=== PATIENT | male | born 1950 | race Caucasian/White ===

== ENCOUNTER → 2016-07-08 | Outpatient (CLI) | payer OTHER, MEDICARE ==
--- NOTE | 2016-07-08 15:33 | DX ---
Chest, Two Views - July 08, 2016, at 1144 hours History: Cough. Comparison: February 2014. Findings: Cardiac silhouette is within normal range. No pneumonia, congestive heart failure, pleura l effusion, or pneumothorax. Right inferolateral pleural thickening similar to the previous study wit h blunting of the right costophrenic angle again noted. Bilateral peribronchial thickening. Impression: 1. Mild bronchitis. 2. No definite pneumonia. 3. Right inferolateral pleural thickening similar to the previous study.
== END ==
LOC: CIMAGING 11:21
PROVIDERS: ATTEND Internal Medicine
DX: J40 Bronchitis, not specified as acute or chronic (principal)
CPT/HCPCS: 71020-PO

== ENCOUNTER 2018-04-16 07:59 | Emergency (ER) | payer OTHER, MEDICARE ==
--- NOTE | 2018-04-16 08:33 | EDPHY ---
H & P Stated Complaint: constipation, last bowel movement on thursday, took mag citrate this am Time Seen by Provider: 04/16/18 08:03 HPI/ROS: This patient presents with constipation. His last bowel movement was 5 days ago. He explains that he had a colonoscopy without complications 6 days ago and 1 small bowel movement thereafter but since then has been unable to have a bowel movement. He feels that there is stool in the rectal vault but is unable to"push passed beyond the wall". He had 1 similar episode in the past that resolved with Mag citrate so he tried some Mag citrate this morning and developed some abdominal cramping that was moderate prior to arrival. The cramping has since subsided but he still unable to have a bowel movement. ROS: Constitutional: No fevers HEENT: No URI symptoms or other complaints new line pulmonary: No dyspnea Cardiovascular: No lightheadedness or chest pain GI: No abdominal distension. No nausea or vomiting. Maintains normal appetite : No complaints Neuro: No complaints 10 point review of symptoms is performed and otherwise negative with exception of pertinent positives and negatives listed in HPI and ROS Source: Patient Exam Limitations: No limitations - Medical/Surgical History Hx Asthma: No Hx Chronic Respiratory Disease: No Hx Diabetes: No Hx Cardiac Disease: No Hx Renal Disease: No Hx Cirrhosis: No Hx Alcoholism: No Hx HIV/AIDS: No Hx Splenectomy or Spleen Trauma: No Other PMH: hernia repair, partial colectomy (to tx a fistula), prostate ca - 2009 - Social History Smoking Status: Never smoked Alcohol Use: Occasionally Drug Use: None - Physical Exam Exam: General Appearance: Alert, no distress. Eyes: Pupils equal and round no pallor or injection. ENT, Mouth: Mucous membranes moist. Respiratory: There are no retractions, lungs are clear to auscultation. Cardiovascular: Regular rate and rhythm. Gastrointestinal: Abdomen is soft and nontender, no masses, bowel sounds normal. Rectal exam: No external hemorrhoids. He has some firm stool in the rectal vault that is brown and heme-negative on Hemoccult testing : No evidence of inguinal hernia. No testicular swelling or tenderness. Neurological: GCS 15 Skin: Warm and dry, no rashes. Musculoskeletal: Neck is supple nontender. Extremities are symmetrical, full range of motion. Psychiatric: Mood and affect are normal DIFFERENTIAL DIAGNOSIS: After history and physical exam differential diagnosis was considered for constipation, obstipation, doubt early bowel obstruction or electrolyte abnormality. Constitutional: Initial Vital Signs Temperature (C) 36.5 C 04/16/18 08:07 Heart Rate 80 04/16/18 08:07 Respiratory Rate 18 04/16/18 08:07 Blood Pressure 182/121 H 04/16/18 08:07 O2 Sat (%) 99 04/16/18 08:07 O2 Delivery Mode Room Air Allergies/Adverse Reactions: No Known Allergies Allergy (Verified 04/16/18 08:05) Home Medications: Medication Instructions Recorded amLODIPine BESYLATE [Norvasc 5 mg 5 mg PO DAILY 03/06/15 (*)] traZODone [traZODONE 50MG (*)] 50 mg PO HS 03/06/15 Docusate Sodium [Colace 100 MG (*)] 100 mg PO BID #20 cap 04/16/18 Medical Decision Making ED Course/Re-evaluation: soapsuds enema with small bowel movement Based on initial exam I felt the patient might require manual disimpaction however he was very anxious about the initial exam with high sphincter tone given this factor he gave him a dose of Versed as mild anxiolytic while on O2 sat monitor and attempted disimpaction but the stools high the rectal vault I was unable to remove the remaining firm stool. Clinically the patient does not have obstruction. Will send him home with plan for a bowel regimen for constipation. He understands need to return should he develop worsening symptoms despite treatment plan - Data Points Medications Given: Discontinued Medications Sodium Chloride (Ns) 1,000 mls @ 0 mls/hr IV ONCE ONE; Wide Open PRN Reason: Protocol Stop: 04/16/18 09:39 Last Admin: 04/16/18 09:50 Dose: 1,000 mls Midazolam HCl (Versed) 2 mg IVP EDNOW ONE Stop: 04/16/18 09:18 Last Admin: 04/16/18 09:18 Dose: 2 mg Point of Care Test Results: Chemistry 04/16/18 09:13 POC Sodium 143 mEq/L mEq/L (135-145) POC Potassium 3.5 mEq/L mEq/L (3.3-5.0) POC Chloride 103.0 mEq/L mEq/L (97-110) POC Total CO2 26 mEq/L mEq/L (22-31) POC BUN 13 mg/dL mg/dL (7-23) POC Creatinine 1.4 mg/dL H mg/dL (0.7-1.3) POC Glucose 105 mg/dL H mg/dL (70-100) POC Calcium 9.6 mg/dL mg/dL (8.5-10.4) Occult Blood Occult Blood Collection Date 04/16/18 Occult Blood Collection Time 08:35 Occult Blood Result Negative/Negative Departure - Departure Disposition: Home, Routine, Self-Care Clinical Impression: Constipation Condition: Good Instructions: Constipation (ED), High Fiber Diet (ED) Additional Instructions: Diagnosis: Constipation Plan: Colace stool softener-2 day Metamucil 20 g a day Milk a magnesia-30 mL a day [place] oil 1-2 tbsp a day Enemas as needed Consider 1/2 dose of Mag citrate at a time in addition as needed. Above plan until the having 1 more bowel movements today. If you start having loose stools then dropped 1 of these therapies that time starting from the bottom going up for the top the list. Call your primary care physician to arrange follow-up appointment for further evaluation Return for any significant worsening despite the treatment plan Referrals: NONE *PRIMARY CARE P,. [Primary Care Provider] - As per Instructions Nandini Mars DO [Doctor of Osteopathy] - As per Instructions Prescriptions: Docusate Sodium [Colace 100 MG (*)] 100 mg PO BID #20 cap
[2018-04-16] MEDS ORDERED: MIDAZOLAM 2 MG/2 ML VIAL ONE (09:15)
[2018-04-16] MEDS: MIDAZOLAM 2 MG/2 ML VIAL IVP ONE (09:18)
[2018-04-16] MEDS: NS 1,000 ML IV ONE (09:50)
[2018-04-16 17:00] VITALS: BP 156/91
== END 2018-04-16 10:32 | disposition home or self-care (01) ==
LOC: CED 07:59
DX: K59.00 Constipation, unspecified (principal)
CPT/HCPCS: 96361; 96374; 99284; J2250; 80048-PO

== ENCOUNTER 2018-10-03 14:53 | Observation (INO) | payer OTHER, MEDICARE ==
--- NOTE | 2018-10-03 15:03 | EDPHY ---
HPI/HX/ROS/PE/MDM Narrative: CHIEF COMPLAINT: Pain, erythema, bleeding s/p hernia repair 11 days ago HPI: This patient is a 68 year old male with history of prostate cancer. He is s/p ventral hernia repair surgery with Dr. Bourne, general surgeon, on 09/22/18, 11 days ago. He arrives today with his complaining of and pain and redness around his surgical site as well as bleeding from the area. Armando, he and his noted some mild redness around his dressings. Yesterday, he developed pain around the surgical site which "felt like bee stings". Today, he noted increased erythema and bleeding coming from under the dressing. He denies fever , nausea, vomiting, or diarrhea. He has not yet followed up with his surgeon since the procedure. REVIEW OF SYSTEMS: A comprehensive 10 system review of systems is otherwise negative aside from elements mentioned in the history of present illness and medical decision making. PMH: Hernia repair, partial colectomy for fistula repair, history of prostate cancer in 2009 SOCIAL HISTORY: Nonsmoker. . Employed. PHYSICAL EXAM: General:Patient is alert, in no acute distress. ENT:Eyes are normal to inspection. ENT inspection normal. Neck: Normal inspection. Full range of motion. Respiratory:No respiratory distress. Breath sounds normal bilaterally. Cardiovascular: Regular rate and rhythm. Strong peripheral pulses. Normal cap refill. Abdomen: Healing surgical incision with 6 inches of surrounding erythema. Serosanguineous discharge from umbilicus. Steri strips over incision are intact. The abdomen is nontender to palpation. There are no peritoneal signs. There are normal bowel sounds. Back: Normal to inspection. No tenderness to palpation. Skin: See abdomen. Normal color. No rash. Warm and dry. Extremities: Normal appearance. Full range of motion. Neuro: Oriented x3. Normal motor function. Normal sensory function. ED Course: 68 y/o male who is day 11 s/p hernia repair presents with about 6in of erythema surrounding his surgical site and serosanguineous discharge from the umbilicus. Plan for labs including CBC, chemistries, co-ag panel. Plan to consult with Dr. Bourne or the general surgeon community association manager for his practice. 15:30 Reviewed laboratory studies. WBC elevated at 15,000. Chemistries pending. 16:00 Laboratory studies otherwise largely unremarkable. Plan to consult with general surgery as above. 16:15 Dr. Vogel, general surgeon, at bedside. 16:33 Dr. Vogel, has evaluated the patient. He has a large abscess under his surgical site. Dr. Vogel plans to I&D this here in the emergency department. Plan to admit patient following this. Dr. Vogel accepts admission. - Data Points Laboratory Results: Laboratory Results 10/03/18 15:15 10/03/18 15:15 10/03/18 10/03/18 10/03/18 15:15 15:15 15:15 WBC 15.53 10^3/uL H 10^3/uL (3.80-9.50) RBC 5.10 10^6/uL 10^6/uL (4.40-6.38) Hgb 15.9 g/dL g/dL (13.7-17.5) Hct 44.8 % % (40.0-51.0) MCV 87.8 fL fL (81.5-99.8) MCH 31.2 pg pg (27.9-34.1) MCHC 35.5 g/dL g/dL (32.4-36.7) RDW 11.1 % L % (11.5-15.2) Plt Count 239 10^3/uL 10^3/uL (150-400) MPV 8.4 fL L fL (8.7-11.7) Neut % (Auto) 77.7 % H % (39.3-74.2) Lymph % (Auto) 12.2 % L % (15.0-45.0) [place] % (Auto) 8.3 % % (4.5-13.0) Eos % (Auto) 0.8 % % (0.6-7.6) Baso % (Auto) 0.2 % L % (0.3-1.7) Nucleat RBC Rel Count 0.0 % % (0.0-0.2) Absolute Neuts (auto) 12.06 10^3/uL H 10^3/uL (1.70-6.50) Absolute Lymphs (auto) 1.89 10^3/uL 10^3/uL (1.00-3.00) Absolute Monos (auto) 1.29 10^3/uL H 10^3/uL (0.30-0.80) Absolute Eos (auto) 0.13 10^3/uL 10^3/uL (0.03-0.40) Absolute Basos (auto) 0.03 10^3/uL 10^3/uL (0.02-0.10) Absolute Nucleated RBC 0.00 10^3/uL 10^3/uL (0-0.01) Immature Gran % 0.8 % % (0.0-1.1) Immature Gran # 0.13 10^3/uL H 10^3/uL (0.00-0.10) PT 14.7 SEC SEC (12.0-15.0) INR 1.20 H (0.83-1.16) APTT 31.6 SEC SEC (23.0-38.0) Sodium 138 mEq/L mEq/L (135-145) Potassium 3.3 mEq/L L mEq/L (3.5-5.2) Chloride 102 mEq/L mEq/L (97-110) Carbon Dioxide 26 mEq/l mEq/l (22-31) Anion Gap 10 mEq/L mEq/L (6-14) BUN 19 mg/dL mg/dL (7-23) Creatinine 1.2 mg/dL mg/dL (0.7-1.3) Estimated GFR 60 Glucose 112 mg/dL H mg/dL (70-100) Calcium 8.8 mg/dL mg/dL (8.5-10.4) Medications Given: Discontinued Medications Cefazolin Sodium/Dextrose (Ancef 1 Gm (Premix)) 50 mls @ 200 mls/hr IV EDNOW ONE PRN Reason: Protocol Stop: 10/03/18 16:59 Last Admin: 10/03/18 17:05 Dose: 50 mls General Time Seen by Provider: 10/03/18 15:01 Initial Vital Signs: Initial Vital Signs Temperature (C) 36.9 C 10/03/18 14:57 Heart Rate 95 10/03/18 14:57 Respiratory Rate 17 10/03/18 14:57 Blood Pressure 140/85 H 10/03/18 14:57 O2 Sat (%) 97 10/03/18 14:57 O2 Delivery Mode Room Air Allergies/Adverse Reactions: No Known Allergies Allergy (Verified 10/03/18 14:57) Home Medications: Medication Instructions Recorded amLODIPine BESYLATE [Norvasc 5 mg 5 mg PO DAILY 03/06/15 (*)] traZODone [traZODONE 50MG (*)] 50 mg PO HS 03/06/15 Docusate Sodium [Colace 100 MG (*)] 200 mg PO DAILY 10/03/18 Departure - Departure Disposition: [facility] Acute Clinical Impression: Surgical site infection Condition: Fair Report Scribed for: Rogelio Bender Report Scribed by: Ginette Cline Date of Report: 10/03/18 Time of Report: 15:04 Physician Review and Approval Statement: Portions of this note were transcribed by an ED scribe. I personally performed the history, physical exam, and medical decision making; and confirm the accuracy of the information in the transcribed note.
[2018-10-03 15:30] LABS: PLATELET COUNT 239 10^3/uL (150-400)
[2018-10-03 15:44] LABS: INR 1.2 (0.83-1.16); PROTIME(PATIENT) 14.7 SEC (12.0-15.0)
[2018-10-03] MEDS ORDERED: ACETAMINOPHEN 325 MG TAB PO PRN (16:56)
[2018-10-03] MEDS ORDERED: OXYCODONE/APAP 5/325 TAB PO PRN (16:56)
[2018-10-03] MEDS ORDERED: ONDANSETRON DISINTEGRATING 4 MG TAB PO PRN (16:56)
[2018-10-03] MEDS ORDERED: ONDANSETRON 4 MG/2 ML VIAL IVP PRN (16:56)
--- NOTE | 2018-10-03 16:56 | PDGENHP ---
History and Physical - Chief Complaint abd pain, drainage, fevers - History of Present Illness Otherwise healthy 68yo M who underwent open ventral hernia repair with mesh with my partner, Dr Bourne 11 days ago.Briefly, has been doing well, has had good pain control and has been without complaint. Thursday, began to have some abdominal discomfort and generally felt unwell, this progressed through Thursday when he was actually feeling better. Today, the incision opened up and was erythematous with seropurulent drainage. Endorses chills, no fevers. History Information - Allergies/Home Medication List Allergies/Adverse Reactions: No Known Allergies Allergy (Verified 10/03/18 14:57) Home Medications: amLODIPine BESYLATE [Norvasc 5 mg (*)] 5 mg PO DAILY 03/06/15 [Last Taken 06:00] traZODone [traZODONE 50MG (*)] 50 mg PO HS 03/06/15 [Last Taken 03/06/15 21:00] I have personally reviewed and updated: medical history, social history, surgical history - Past Medical History hypertension - Surgical History Additional surgical history: open ventral hernia repair with mesh - Family History Positive for: non-pertinent - Social History Smoking Status: Never smoked Additional social history: at bedside Review of Systems Review of Systems: ROS: 10pt was reviewed & negative except for what was stated in HPI & below Physical Exam Physical Exam: Temp Pulse Resp BP Pulse Ox 36.9 C 95 17 140/85 H 97 10/03/18 14:57 10/03/18 14:57 10/03/18 14:57 10/03/18 14:57 10/03/18 14:57 Constitutional: no apparent distress, appears nourished, not in pain Eyes: PERRL, anicteric sclera, EOMI Ears, Nose, Mouth, Throat: moist mucous membranes, hearing normal, ears appear normal, no oral mucosal ulcers Cardiovascular: regular rate and rhythym, no murmur, rub, or gallop, No edema Respiratory: no respiratory distress, no rales or rhonchi, clear to auscultation Gastrointestinal: normoactive bowel sounds, other (large amt of erythema adjacent to incision, inferior portion is open and draining purulent fluid. Fascia intact) Genitourinary: no bladder fullness, no bladder tenderness Skin: warm, normal color, no rashes or abrasions, no fluctuance, no induration, No mottled Musculoskeletal: full muscle strength, no muscle tenderness, normal joint ROM, no joint effusions Psychiatric: interacting appropriately, not anxious, not encephalopathic, thought process linear Lymph, Heme, Immunologic: no cervical LAD, no supraclavicular LAD Lab Data & Imaging Review 10/03/18 15:15 10/03/18 15:15 WBC 15.53 10^3/uL (3.80-9.50) H 10/03/18 15:15 RBC 5.10 10^6/uL (4.40-6.38) 10/03/18 15:15 Hgb 15.9 g/dL (13.7-17.5) 10/03/18 15:15 Hct 44.8 % (40.0-51.0) 10/03/18 15:15 MCV 87.8 fL (81.5-99.8) 10/03/18 15:15 MCH 31.2 pg (27.9-34.1) 10/03/18 15:15 MCHC 35.5 g/dL (32.4-36.7) 10/03/18 15:15 RDW 11.1 % (11.5-15.2) L 10/03/18 15:15 Plt Count 239 10^3/uL (150-400) 10/03/18 15:15 MPV 8.4 fL (8.7-11.7) L 10/03/18 15:15 Neut % (Auto) 77.7 % (39.3-74.2) H 10/03/18 15:15 Lymph % (Auto) 12.2 % (15.0-45.0) L 10/03/18 15:15 [place] % (Auto) 8.3 % (4.5-13.0) 10/03/18 15:15 Eos % (Auto) 0.8 % (0.6-7.6) 10/03/18 15:15 Baso % (Auto) 0.2 % (0.3-1.7) L 10/03/18 15:15 Nucleat RBC Rel Count 0.0 % (0.0-0.2) 10/03/18 15:15 Absolute Neuts (auto) 12.06 10^3/uL (1.70-6.50) H 10/03/18 15:15 Absolute Lymphs (auto) 1.89 10^3/uL (1.00-3.00) 10/03/18 15:15 Absolute Monos (auto) 1.29 10^3/uL (0.30-0.80) H 10/03/18 15:15 Absolute Eos (auto) 0.13 10^3/uL (0.03-0.40) 10/03/18 15:15 Absolute Basos (auto) 0.03 10^3/uL (0.02-0.10) 10/03/18 15:15 Absolute Nucleated RBC 0.00 10^3/uL (0-0.01) 10/03/18 15:15 Immature Gran % 0.8 % (0.0-1.1) 10/03/18 15:15 Immature Gran # 0.13 10^3/uL (0.00-0.10) H 10/03/18 15:15 PT 14.7 SEC (12.0-15.0) 10/03/18 15:15 INR 1.20 (0.83-1.16) H 10/03/18 15:15 APTT 31.6 SEC (23.0-38.0) 10/03/18 15:15 Sodium 138 mEq/L (135-145) 10/03/18 15:15 Potassium 3.3 mEq/L (3.5-5.2) L 10/03/18 15:15 Chloride 102 mEq/L (97-110) 10/03/18 15:15 Carbon Dioxide 26 mEq/l (22-31) 10/03/18 15:15 Anion Gap 10 mEq/L (6-14) 10/03/18 15:15 BUN 19 mg/dL (7-23) 10/03/18 15:15 Creatinine 1.2 mg/dL (0.7-1.3) 10/03/18 15:15 Estimated GFR 60 10/03/18 15:15 Glucose 112 mg/dL (70-100) H 10/03/18 15:15 Calcium 8.8 mg/dL (8.5-10.4) 10/03/18 15:15 Assessment & Plan Assessment: Surgical site infection (Acute) Plan: 68yo M c SSI - incision was opened and probed, fascia appears intact. Area was irrigated with 50cc sterile saline - area was packed with sterile 1/2 inch packing - cultures taken, will empirically start abx in the ED - admission for monitoring, there is mesh deep to the fascia - plan discussed with the patient and his , they are in agreement. Plan also discussed with ED attending caring for the patient
[2018-10-03] MEDS ORDERED: D5W 1/2 NS W/ 20 KCl/L 1,000 ML IV SCH (17:00)
[2018-10-03] MEDS: traZODone 50 MG TAB PO SCH (20:19)
[2018-10-04 03:57] LABS: PLATELET COUNT 203 10^3/uL (150-400)
[2018-10-04] MEDS: DOCUSATE SODIUM 100 MG CAP PO SCH (09:38)
[2018-10-04] MEDS: amLODIPine BESYLATE 5 MG TAB PO SCH (09:39)
[2018-10-04] MEDS ORDERED: PNEUMOC 13-VAL CONJ-DIP CRM/PF 0.5 ML SYR (PREVNAR 13) IM ONE (11:00)
--- NOTE | 2018-10-04 11:25 | ASMTCMCOM ---
CM Note CM Note Notes: Chrt reviewed for discharge planning purposes. Patient is a 68 year old male who normally resides independently with his . He is s/p ventral hernia repair, and came to the ED last night for his wound which has reddened and started to drain. He is admitted under surgical services. Last discharged without services. CM to follow for needs. Plan: TBD Date Signed: 10/04/2018 11:23 AM Electronically Signed By:Patria Nelson RN
[2018-10-04] MEDS: traZODone 50 MG TAB PO SCH (20:38)
[2018-10-05 07:35] VITALS: BP 138/86
--- NOTE | 2018-10-05 09:08 | SOAPPROG ---
SOAP Progress Note Assessment/Plan: Assessment/Plan: 68 Y M recent VH repair admitted c abscess, s/p I&D. Doing better. Wound clean. Erythema receded. Still concerned bc pt has mesh in place. Will need close obs, but can do this as outpatient. Will d/c to home c augmentin and f/u on . D/w'ed Dr. Bourne who agrees with plan. S: no pain. feels fine. O: alert, nad mmm no wob rrr abs soft, erythema receded, wound clean, +drainage, no tunneling, hernia repair intact 10/05/18 09:09 Objective: Vital Signs Temp Pulse Resp BP Pulse Ox 36.3 C 78 16 138/86 H 95 10/05/18 07:33 10/05/18 07:33 10/05/18 07:33 10/05/18 07:33 10/05/18 07:33 Microbiology 10/03/18 16:50 Gram Stain - Final Abdomen - Swab Laboratory Results 10/04/18 03:40 10/04/18 10/05/18 10/06/18 05:59 05:59 05:59 Intake Total 740 2750 Balance 740 2750 PT 14.7 SEC (12.0-15.0) 10/03/18 15:15 INR 1.20 (0.83-1.16) H 10/03/18 15:15 ICD10 Worksheet Patient Problems: Problems Problem Status Onset Surgical site infection Acute Osteoarthritis of knee Acute
--- NOTE | 2018-10-05 09:10 | ASDISCHSUM ---
Discharge Information Plan Status:Home with No Needs Medically Cleared to Leave:10/05/2018 Discharge Date:10/05/2018 CM D/C Disposition:Home, Routine, Self-Care ADT D/C Disposition:Home, Routine, Self-Care Projected Discharge Date:10/05/2018 Transportation at D/C: Discharge Delay Reason: Follow-Up Date:10/05/2018 Discharge Slot: Final Diagnosis: Placement Information Patient Contact Information Contact Name:PHU Relationship: Address:[address] City:[place] Alternate Phone: [facility]/Zip Code:[place] [address] Email: Financial Information Financial Class:Medicare Primary Plan Desc:MEDICARE OUTPATIENT Primary Plan Number:[id number] Secondary Plan Desc:JIE/EZEQUIEL SUPPLEMENT Secondary Plan Number:[id number] Assessment Information LACE LACE Length of stay for Answers: 1 day current admission Comorbidities - select Answers: Any tumor (including all that apply lymphoma or leukemia) Other Notes: HTN # of Emergency department Answers: 1-2 visits in the last 6 months Score: 5 Date Signed: 10/05/2018 09:09 AM Electronically Signed By:Patria Nelson RN [facility] CM Progress Note CM Note CM Note Notes: Chrt reviewed for discharge planning purposes. Patient is a 68 year old male who normally resides independently with his . He is s/p ventral hernia repair, and came to the ED last night for his wound which has reddened and started to drain. He is admitted under surgical services. Last discharged without services. CM to follow for needs. Plan: TBD Date Signed: 10/04/2018 11:23 AM Electronically Signed By:Patria Nelson RN Intervention Information Intervention Type:*ASAEL-Signed Date of Service:10/04/2018 10:48 AM Patient Type:Observation Staff Member:Hillary Murillo Hours: Discipline: Severity: Comment:
--- NOTE | 2018-10-05 09:25 | ASMTDCNOTE ---
Case Management Discharge Discharge Order Complete? Answers: Yes Patient to Obtain Answers: via Family Medications Transportation Arranged Answers: Family/Friends Family Notified Answers: Yes Discharge Comments Notes: Patient medically cleared for independent discharge to home. No current needs, CM available should needs arise. Date Signed: 10/05/2018 09:23 AM Electronically Signed By:Patria Nelson RN
[2018-10-05] MEDS: amLODIPine BESYLATE 5 MG TAB PO SCH (09:46)
[2018-10-05] MEDS: DOCUSATE SODIUM 100 MG CAP PO SCH (09:58)
--- NOTE | 2018-10-05 11:52 | ASMTCMCOM ---
CM Note CM Note Notes: Per RN, family unable to assist with daily dressing changes and HHC will be required. RN called surgery wh will place order, will confirm with family address and if there is preferential provider. Referrals in allscripts. Plan: Home with HHC. CM available should other needs arise. Plan: Home with HHC Date Signed: 10/05/2018 11:52 AM Electronically Signed By:Patria Nelson RN
--- NOTE | 2018-10-05 12:59 | PDIAF ---
- Diagnosis Diagnosis: ventral hernia, subsequent abscess s/p I&D Code Status: Full Code - Medication Management Halfway Antibiotics: augmentin, PO x 10 days Discharge Medications: electronically signed and located in the Home Medication List. PICC Care - Routine: N/A - Orders Services needed: Home Care, Registered Nurse Home Care Face to Face: I certify that this patient was under my care and that I had the required [id number] encounter meeting the encounter requirements on the discharge day. My findings support the fact that the patient is homebound as defined in Home Care Face to Face Continued: CMS Chapter 7 Medicare Benefits Manual 30.1.1 , The condition of the patient is such that there exists a normal inability to leave home and consequently, leaving home would require a considerable and taxing effort. Diet Recommendation: no restrictions on diet Diet Texture: Regular Texture Diet Wound Care Instructions: Home nursing wound care instructions: please change packing every day with 1/4 iodoform or plain gauze packing strip, 4 x 4 gauze, and tape. Activity/Weight Bearing Restrictions: No lifting over 20 lbs. Additional Instructions: No lifting over 20 lbs. Can keep wound dry, but ok to shower as we discussed-- you will need to replace a dressing after the shower. Home nursing wound care instructions: please change packing every day with 1/4 iodoform or plain gauze packing strip, 4 x 4 gauze, and tape. - Follow Up Care Current Providers and Referrals: Jack Bourne MD [Medical Doctor] - 1-2 days (call for an appt to be seen on ) Dat Espana MD [Primary Care Provider] - As per Instructions
== END 2018-10-05 12:55 | disposition home or self-care (01) ==
LOC: F1N 17:23
PROVIDERS: ADMIT Surgery; ATTEND Surgery
PROC: 0J980ZZ Drainage of Abdomen Subcutaneous Tissue and Fascia, Open Approach (ICD-10-PCS; principal; 2018-10-03)
DX: T81.41XA Infection following a procedure, superficial incisional surgical site, initial encounter (principal); Z23 Encounter for immunization; Z85.46 Personal history of malignant neoplasm of prostate; Z90.49 Acquired absence of other specified parts of digestive tract
CPT/HCPCS: 10060; 90670; 96374; 96375; 96376; 99285; G0009; G0378; J0690; J0696

== ENCOUNTER 2018-10-28 10:03 | Inpatient (IN) | payer OTHER, MEDICARE ==
[2018-10-28] MEDS ORDERED: ceFAZolin 2 GM/DEXTROSE 100 ML IV ONE (10:12)
[2018-10-28] MEDS ORDERED: LR 1,000 ML IV ONE (10:12)
[2018-10-28] MEDS ORDERED: BUPIVACAINE 0.5% 30 ML SDV ONE (10:24)
--- NOTE | 2018-10-28 10:47 | PDANEPAE ---
ANE History of Present Illness infected mesh s/p hernia repair ANE Past Medical History - Cardiovascular History Hx Hypertension: Yes Hx Arrhythmias: No Hx Chest Pain: No Hx Coronary Artery / Peripheral Vascular Disease: No Hx CHF / Valvular Disease: No Hx Palpitations: No - Pulmonary History Hx COPD: No Hx Asthma/Reactive Airway Disease: No Hx Recent Upper Respiratory Infection: No Hx Oxygen in Use at Home: No Hx Sleep Apnea: No Sleep Apnea Screening Result - Last Documented: Positive Pulmonary History Comment: soledad triggers - Neurologic History Hx Cerebrovascular Accident: No Hx Seizures: No Hx Dementia: No - Endocrine History Hx Diabetes: No Hypothyroid: No Hyperthyroid: No Obesity: no - Renal History Hx Renal Disorders: No - Liver History Hx Hepatic Disorders: No - Neurological & Psychiatric Hx Hx Neurological and Psychiatric Disorders: No - Cancer History Hx Cancer: Yes Cancer History Comment: prostate CA with radioactive seeds 2009 - Congenital Disorder History Hx Congenital Disorders: No - GI History GERD: no Hx Gastrointestinal Disorders: No - Other Health History Other Health History: wears glasses. bilateral hearing aides - Chronic Pain History Chronic Pain: No - Surgical History Prior Surgeries: 03/07/15 left partial knee with [place] 06/19/09 prostate bx with Ifeanyi. colectomy. hernia repair. PROSTATE SEEDING ANE Review of Systems Review of systems is: negative Review of Systems: - Exercise capacity Exercise capacity: >=4 METS METS (RN): 4 METS ANE Patient History - Allergies Allergies/Adverse Reactions: No Known Allergies Allergy (Verified 10/27/18 17:48) - Home Medications Home medications: home medication list seen and reviewed Home Medications: amLODIPine BESYLATE [Norvasc 5 mg (*)] 03/06/15 [Last Taken 10/28/18] Flagyl 10/27/18 [Last Taken 10/27/18] Levaquin 10/27/18 [Last Taken 10/27/18] Probiotic 10/27/18 [Last Taken 10/27/18] - NPO status NPO Status: no food or drink >8 hours NPO Since - Liquids (Date): 10/28/18 NPO Since - Liquids (Time): 07:30 NPO Since - Solids (Date): 10/27/18 NPO Since - Solids (Time): 20:00 - Anes Hx Anes Hx: no prior problems - Smoking Hx Smoking Status: Never smoked - Family Anes Hx Family Hx Anesthesia Complications: none ANE Labs/Vital Signs - Labs Result Diagrams: 10/28/18 10:55 - Vital Signs Vital Signs: reviewed preoperatively; see RN documention for details Blood Pressure: 156/102 Heart Rate: 86 Respiratory Rate: 16 O2 Sat (%): 98 Height: 175.26 cm Weight: 74.843 kg ANE Physical Exam - Airway Neck exam: FROM Mallampati Score: Class 2 Mouth exam: normal dental/mouth exam - Pulmonary Pulmonary: no respiratory distress - Cardiovascular Cardiovascular: regular rate and rhythym - ASA Status ASA Status: II ANE Anesthesia Plan Anesthesia Plan: general endotracheal anesthesia
[2018-10-28 11:09] LABS: PLATELET COUNT 210 10^3/uL (150-400)
--- NOTE | 2018-10-28 11:30 | PDHPUP ---
History & Physical Update H&P update statement: This history and physical update is based on an assessment of the patient which was completed after admission or registration (within 24 hours), but prior to the surgery/procedure. H&P update: H&P reviewed & patient examined, no change in patient's condition since H&P completed
[2018-10-28] MEDS ORDERED: MIDAZOLAM 2 MG/2 ML VIAL IVP ONE (11:39)
[2018-10-28] MEDS ORDERED: fentaNYL 100 MCG/2 ML INJ ONE ×4 (11:45→14:11)
[2018-10-28] MEDS ORDERED: PROPOFOL 200 MG/20 ML VIAL ONE (11:46)
[2018-10-28] MEDS ORDERED: LIDOCAINE 2% 5 ML SDV ONE (11:47)
[2018-10-28] MEDS ORDERED: ROCURONIUM 50 MG/5 ML VIAL ONE ×2 (11:47→13:10)
[2018-10-28] MEDS ORDERED: KETOROLAC 30 MG/1 ML SDV ONE (12:26)
[2018-10-28] MEDS ORDERED: ONDANSETRON 4 MG/2 ML VIAL ONE (12:27)
[2018-10-28] MEDS ORDERED: DEXAMETHASONE 4 MG/ML VIAL ONE (12:27)
[2018-10-28] MEDS ORDERED: DEXAMETHASONE 4 MG/ML VIAL IVP PRN (12:52)
[2018-10-28] MEDS ORDERED: LR 500 ML IV PRN (12:52)
[2018-10-28] MEDS ORDERED: PHENYLEPHRINE HCL 100 MCG/ML SYR IVP PRN (12:52)
[2018-10-28] MEDS ORDERED: ALBUTEROL 3 ML DEYVIAL IH PRN (12:52)
[2018-10-28] MEDS ORDERED: ONDANSETRON 4 MG/2 ML VIAL IVP PRN (12:52)
[2018-10-28] MEDS ORDERED: ACETAMINOPHEN 500 MG TAB PO PRN (12:52)
[2018-10-28] MEDS ORDERED: NALOXONE HCL 0.4 MG/ML INJ IVP PRN (12:52)
[2018-10-28] MEDS ORDERED: MEPERIDINE 25 MG/0.5 ML AMP IVP PRN (12:52)
[2018-10-28] MEDS ORDERED: METOCLOPRAMIDE 10 MG/2 ML VIAL IVP PRN (12:52)
[2018-10-28] MEDS ORDERED: oxyCODONE IR 5 MG TAB PO PRN (12:52)
[2018-10-28] MEDS ORDERED: PROMETHAZINE HCL 25 MG/ML INJ IVP PRN (12:52)
[2018-10-28] MEDS ORDERED: SUGAMMADEX SODIUM 200 MG/2 ML VIAL IVP ONE (13:27)
[2018-10-28] MEDS ORDERED: HYDROmorphONE/DILAUDID 1 MG/ML INJ IVP PRN (13:50)
[2018-10-28] MEDS ORDERED: HYDROmorphONE/DILAUDID 1 MG/ML INJ ONE ×2 (13:50→14:10)
[2018-10-28] MEDS ORDERED: ACETAMINOPHEN 325 MG TAB PO PRN (13:51)
[2018-10-28] MEDS: HYDROmorphONE/DILAUDID 1 MG/ML INJ IVP PRN ×5 (13:52→14:45)
[2018-10-28] MEDS ORDERED: LABETALOL HCL 5 MG/ML 20 ML MDV ONE (13:56)
[2018-10-28] MEDS: fentaNYL 100 MCG/2 ML INJ IVP PRN ×3 (13:58→14:21)
[2018-10-28] MEDS ORDERED: NS 1,000 ML IV SCH (14:00)
[2018-10-28] MEDS: LABETALOL HCL 5 MG/ML 20 ML MDV IVP PRN ×2 (14:00→14:05)
--- NOTE | 2018-10-28 14:18 | POSTOPPROG ---
Post Op Note Date of Operation: 10/28/18 Surgeon: Jack Bourne Workday Director: Keshav Anesthesiologist: [place] Anesthesia: GET(General Endotracheal) Pre-op Diagnosis: Wound infection Post-op Diagnosis: Colocutaneous fistula, infected mesh Indication: Nonhealing wound Procedure: Open exploration of wound, removal mesh, partial colectomy Findings: Transverse colon had invaded into the colon. Gross purulence present Inf/Abcess present in the surg proc area at time of surgery?: Yes Depth: Organ Space EBL: 50-100 Bowel Protocol: No Clean Closure Performed: No (Wound not closed) Drains: Wound Vac Specimen(s): Abdominal wound tissue- culture Abdominal wound swabs- culture Mesh- culture Transverse colon- permanent
--- NOTE | 2018-10-28 16:04 | PDMN ---
Medical Necessity Medical necessity: Pt meets IP criteria per [employer] & MCG SG-MS Musculoskeletal Surgery or Procedure; est los >2 mn for eval/tx of colocutaneous fistula w/ transverse colon eroding into mesh s/p open ventral hernia repair; requiring open exploration of wound, removal of mesh & partial colectomy w/wound vac placement; per op report & order 10/28/18
[2018-10-28] MEDS: ERTAPENEM 1 GM in NS 100 ML IV SCH (16:31)
[2018-10-28] MEDS: KETOROLAC 15 MG/1 ML SDV IVP SCH ×2 (18:44→23:20)
[2018-10-28] MEDS: oxyCODONE IR 5 MG TAB PO PRN ×2 (18:45→19:37)
[2018-10-28] MEDS ORDERED: traZODone 50 MG TAB PO PRN (20:06)
[2018-10-28] MEDS ORDERED: traMADol 50 MG TAB PO PRN (20:07)
--- NOTE | 2018-10-28 22:34 | SOAPPROG ---
SOAP Progress Note Assessment/Plan: Assessment: doing well postop/ afebrile/ incision tender Plan:advance diet in am 10/28/18 22:33 Objective: Vital Signs Temp Pulse Resp BP Pulse Ox 36.6 C 79 16 133/83 H 98 10/28/18 19:02 10/28/18 19:02 10/28/18 19:02 10/28/18 19:02 10/28/18 19:02 Microbiology 10/28/18 12:50 Gram Stain - Final Abdomen - Tissue 10/28/18 12:50 Gram Stain - Final Abdomen - Eswab 10/28/18 12:50 Gram Stain - Final Abdomen - Tissue Laboratory Results 10/28/18 10:55 10/27/18 10/28/18 10/29/18 05:59 05:59 05:59 Intake Total 1300 Output Total 50 Balance 1250 ICD10 Worksheet Patient Problems: Problems Problem Status Onset Osteoarthritis of knee Acute Surgical site infection Acute
[2018-10-29] MEDS: oxyCODONE IR 5 MG TAB PO PRN (01:42)
[2018-10-29] MEDS: KETOROLAC 15 MG/1 ML SDV IVP SCH ×4 (06:01→23:03)
[2018-10-29] MEDS: ERTAPENEM 1 GM in NS 100 ML IV SCH (09:52)
--- NOTE | 2018-10-29 12:47 | ASMTCMCOM ---
CM Note CM Note Notes: Reviewed chart, pt admitted for scheduled surgery to remove abdominal mesh. Pt has been having infections since 1st placement. Pt lives at home with his , anticipate he will dc home with support of family when medically stable. CM available for any changes. PT cancelled. DC Plan: Independent Date Signed: 10/29/2018 12:46 PM Electronically Signed By:Saundra Yepez RN
[2018-10-29] MEDS ORDERED: LORazepam 0.5 MG TAB PO PRN (17:59)
[2018-10-29] MEDS: ACETAMN/DIPHENHYDRAMINE 500/25MG TAB PO SCH (23:03)
[2018-10-29] MEDS: traZODone 50 MG TAB PO SCH (23:03)
[2018-10-30] MEDS: KETOROLAC 15 MG/1 ML SDV IVP SCH ×4 (05:22→23:44)
[2018-10-30] MEDS: ERTAPENEM 1 GM in NS 100 ML IV SCH (09:12)
--- NOTE | 2018-10-30 13:14 | SOAPPROG ---
SOAP Progress Note Assessment/Plan: Assessment: doing well postop/ afebrile/ incision tender Plan:advance diet in am 10/28/18 22:33 10/30/18 13:13 AFEBRILE/COMFORTABLE/POSITIVE BOWEL MOVEMENT/EATING BETTER/VITAL SIGNS STABLE/ WOUND OKAY WOUND VAC CHANGE IN THE A.M. AND POSSIBLY HOME TOMORROW/RISKS AND OPTIONS FULLY DISCUSSED Objective: Vital Signs Temp Pulse Resp BP Pulse Ox 36.4 C 98 16 160/92 H 94 10/30/18 11:13 10/30/18 11:13 10/30/18 11:13 10/30/18 11:13 10/30/18 11:13 Microbiology 10/28/18 12:50 Gram Stain - Final Abdomen - Tissue 10/28/18 12:50 Gram Stain - Final Abdomen - Eswab 10/28/18 12:50 Gram Stain - Final Abdomen - Tissue Laboratory Results 10/29/18 04:16 10/29/18 10/30/18 10/31/18 05:59 05:59 05:59 Intake Total 1300 Output Total 425 500 Balance 875 -500 ICD10 Worksheet Patient Problems: Problems Problem Status Onset Osteoarthritis of knee Acute Surgical site infection Acute
--- NOTE | 2018-10-30 15:17 | ASMTCMCOM ---
CM Note CM Note Notes: Per surgical [employer], pt will need wound vac, may dc this weekend. CM sent paperwork to [employer], it was filled out, signed, and faxed to Sherrell at [facility]. Pt asked that I speak with his , Molly regarding homecare. CM called and she did not have any preference for HC agencies. Referral sent to [facility] DC Plan: Home with wound vac and HC Date Signed: 10/29/2018 03:19 PM Electronically Signed By:Saundra Yepez RN
--- NOTE | 2018-10-30 15:34 | ASMTCMCOM ---
CM Note CM Note Notes: Pt's wound vac approved by [facility], [facility] was unable to print delivery forms from [facility] website. [facility] spoke w/ Sherrell at [facility], she advised just to give pt the wound vac and that she would mail him the paperwork. RN notified that wound vac by [facility] desk. Vac # [id number] Pt november dc on Thursday w/ [facility] Date Signed: 10/30/2018 03:25 PM Electronically Signed By:Saundra Yepez RN
[2018-10-30] MEDS: ACETAMN/DIPHENHYDRAMINE 500/25MG TAB PO SCH (21:14)
[2018-10-30] MEDS: traZODone 50 MG TAB PO SCH (21:14)
[2018-10-31] MEDS: KETOROLAC 15 MG/1 ML SDV IVP SCH ×2 (05:13→11:49)
[2018-10-31] MEDS: ERTAPENEM 1 GM in NS 100 ML IV SCH (08:02)
--- NOTE | 2018-10-31 12:09 | SOAPPROG ---
SOAP Progress Note Assessment/Plan: Assessment: doing well postop/ afebrile/ incision tender Plan:advance diet in am 10/28/18 22:33 10/30/18 13:13 AFEBRILE/COMFORTABLE/POSITIVE BOWEL MOVEMENT/EATING BETTER/VITAL SIGNS STABLE/ WOUND OKAY WOUND VAC CHANGE IN THE A.M. AND POSSIBLY HOME TOMORROW/RISKS AND OPTIONS FULLY DISCUSSED 10/31/18 12:08 afebrile/ eating ok/ wound very clean and granulating/ vac changed home today on outpt vac and fu next week Objective: Vital Signs Temp Pulse Resp BP Pulse Ox 36.9 C 83 14 143/88 H 96 10/31/18 07:48 10/31/18 07:48 10/31/18 07:48 10/31/18 07:48 10/31/18 07:48 Microbiology 10/28/18 12:50 Gram Stain - Final Abdomen - Tissue 10/28/18 12:50 Gram Stain - Final Abdomen - Eswab 10/28/18 12:50 Gram Stain - Final Abdomen - Tissue Laboratory Results 10/29/18 04:16 10/30/18 10/31/18 11/01/18 05:59 05:59 05:59 Output Total 750 Balance -750 ICD10 Worksheet Patient Problems: Problems Problem Status Onset Osteoarthritis of knee Acute Surgical site infection Acute
--- NOTE | 2018-10-31 13:13 | ASMTCMCOM ---
CM Note CM Note Notes: CM discussed case with Phil CARDENAS, patient could possibly discharge today or tomorrow, patient had consult with Dr. Bourne and new wound vac placed today. [facility] will be able to start with patient tomorrow, patient is aware. CM to follow. D/C Plan: Home with [facility]. Date Signed: 10/31/2018 01:12 PM Electronically Signed By:Karina Vo
[2018-10-31 13:16] VITALS: BP 127/83
--- NOTE | 2018-10-31 13:26 | PDIAF ---
- Diagnosis Diagnosis: ventral hernia with wound infection Code Status: Full Code - Medication Management Mate Ship Antibiotic Stop Date: 11/08/18 Discharge Medications: electronically signed and located in the Home Medication List. PICC Care - Routine: N/A - Orders Services needed: Home Residential Care Face to Face: I certify that this patient was under my care and that I had the required [id number] encounter meeting the encounter requirements on the discharge day. My findings support the fact that the patient is homebound as defined in Home Care Face to Face Continued: CMS Chapter 7 Medicare Benefits Manual 30.1.1 , The condition of the patient is such that there exists a normal inability to leave home and consequently, leaving home would require a considerable and taxing effort. Diet Recommendation: no restrictions on diet Diet Texture: Regular Texture Diet Additional Instructions: wound vac with home care help office next week for wound check and vac change rx oxy ir 5mg q4h prn ibuprofen 600 every 6 hrsprn no heavy lifting regular diet may shower - Follow Up Care Current Providers and Referrals: Jack Bourne MD [Primary Care Provider] -
--- NOTE | 2018-10-31 14:52 | ASMTDCNOTE ---
Case Management Discharge Discharge Order Complete? Answers: Yes Patient to Obtain Answers: via Family Medications Transportation Arranged Answers: Family/Friends Faxed Final Orders Answers: Yes Notes: via [employer]/Facility Transfer Answers: Yes Notes: via [employer] Report Printed & Faxed to Receiving Agency Family Notified Answers: Yes Notes: present at discharge Discharge Comments Notes: CM met with patient and family prior to discharge, family will transport patient home and support with follow up. CM explained & delivered IM, patient signed for receipt. Patient has wound vac and will be in contact with the company. Patient is expecting to connect with [facility] tomorrow, CM sent orders via [employer] and spoke with [facility] to update that patient is discharging. CM available to support CM/DC needs that may arise. Date Signed: 10/31/2018 02:51 PM Electronically Signed By:Karina Vo
--- NOTE | 2018-10-31 18:08 | GOP ---
[f rep st] OPERATIVE REPORT DATE OF OPERATION: 10/28/2018 SURGEON: Jack Bourne MD PREOPERATIVE DIAGNOSIS: Abdominal wound infection. POSTOPERATIVE DIAGNOSIS: Infected mesh with colocutaneous fistula. PROCEDURE PERFORMED: Wound exploration, removal of mesh, and a partial transverse colectomy. FINDINGS: The patient was found to have purulence in the wound with exposed mesh. The mesh, however , was adherent to the transverse colon with an apparent erosion and fistula into the colon. DESCRIPTION OF PROCEDURE: The patient was taken to the operating room where he received satisfactory general endotracheal anesthesia by Dr. Guthrie. He was placed in a supine position, and prepped an d draped in the usual sterile fashion. A midline incision was made and carried through the old incis ion and a pocket was encountered with purulent material. This was cultured. Dissection extended lavelle n to exposed mesh. The mesh was freed up along the periphery of the incision but it became apparent that the mesh was eroded into an adherent to a piece of intestine. The incision was enlarged at that time and the linea alba was divided above this area obtaining free access into the peritoneal cavity . Dissection extended gently around the mesh and the fascia exposing this loop of bowel that was adh erent to the mesh. This was eventually circumferentially freed up so it could be elevated up into th e wound and appeared to be transverse colon. The mesh was removed. There was a fistula to the colon . The colon was divided on either side of this with a KENDRA stapler and that specimen was removed. Th e wound was copiously irrigated. A rehf-sn-eals anastomosis was made between the 2 limbs of the colo n with a KENDRA stapler and a cross application of the stapler to close the insertion site. This create d a good 3 fingerbreadth anastomosis. The suture line was reinforced with interrupted 3-0 silk sutur es and a piece of omental tissue was sutured over the suture line as well. That was returned back to the abdomen and the abdomen was irrigated. The fascial level and subcutaneous abscess pocket were a ll sharply debrided and then the fascia was closed with interrupted #1 PDS tfzleq-lw-taoar sutures. The wound was infiltrated with 0.5% Marcaine. A clean closure setup was used with clean towels, inst ruments, gloves, and gowns, and the wound was irrigated. A wound VAC was then placed in the wound. Hemostasis was assured. He tolerated the procedure well. Was taken to the recovery room in good con dition. There were no complications. /[id number]/MODL
--- NOTE | 2018-11-01 10:15 | ASDISCHSUM ---
Discharge Information Plan Status:Home with Home Health Medically Cleared to Leave:10/31/2018 Discharge Date:10/31/2018 03:58 PM D/C Disposition:Home Health Service [facility] D/C Disposition:Home, Routine, Self-Care Projected Discharge Date:10/31/2018 11:00 AM Transportation at D/C:Family Discharge Delay Reason: Follow-Up Date:10/31/2018 11:00 AM Discharge Slot:2 - 12:01 pm - 18:00 pm Final Diagnosis:Surgical site infection Placement Information Referral Type:*Home Health Care Services Referral ID:[id number] Provider Name:[facility] (formerly [facility]) [address] [place] [address] Address 2: City:[place] Selection Factors: State:[place] Patient Contact Information Contact Name:PHU Relationship: Address:[address] City:[place] Alternate Phone: State/Zip Code:[place] [address] Email: Financial Information Financial Class:Medicare Primary Plan Desc:MEDICARE INPATIENT Primary Plan Number:[id number] Secondary Plan Desc:JOSE MARIAP/MDR SUPPLEMENT Secondary Plan Number:[id number] Assessment Information LACE LACE Length of stay for Answers: 3 days current admission Acuity / Level of Answers: Yes Care: Did the patient have an inpatient admission? Comorbidities - select Answers: Other Notes: HTN all that apply # of Emergency department Answers: 1-2 visits in the last 6 months Score: 8 Date Signed: 11/01/2018 10:14 AM Electronically Signed By:Albina Khalil [facility] Progress Note CM Note CM Note Notes: Reviewed chart, pt admitted for scheduled surgery to remove abdominal mesh. Pt has been having infections since 1st placement. Pt lives at home with his , anticipate he will dc home with support of family when medically stable. CM available for any changes. PT cancelled. DC Plan: Independent Date Signed: 10/29/2018 12:46 PM Electronically Signed By:Saundra Yepez RN [facility] Progress Note CM Note [facility] Note Notes: Per surgical [employer], pt will need wound vac, may dc this weekend. [facility] sent paperwork to [employer], it was filled out, signed, and faxed to Sherrell at [facility]. Pt asked that I speak with his , Molly regarding homecare. [facility] called and she did not have any preference for HC agencies. Referral sent to [facility] DC Plan: Home with wound vac and HC Date Signed: 10/29/2018 03:19 PM Electronically Signed By:Saundra Yepez RN [facility] Progress Note CM Note [facility] Note Notes: Pt's wound vac approved by [facility], [facility] was unable to print delivery forms from [facility] website. [facility] spoke w/ Sherrell at [facility], she advised just to give pt the wound vac and that she would mail him the paperwork. RN notified that wound vac by desk. Vac # [id number] Pt may dc on Thursday w/ [employer] and [facility] Date Signed: 10/30/2018 03:25 PM Electronically Signed By:Saundra Yepez RN [facility] CM Progress Note CM Note CM Note Notes: CM discussed case with Phil CARDENAS, patient could possibly discharge today or tomorrow, patient had consult with Dr. Bourne and new wound vac placed today. [facility] will be able to start with patient tomorrow, patient is aware. CM to follow. D/C Plan: Home with [facility] Home/[facility]. Date Signed: 10/31/2018 01:12 PM Electronically Signed By:Karina Vo Case Management Discharge Plan Note Case Management Discharge Discharge Order Complete? Answers: Yes Patient to Obtain Answers: via Family Medications Transportation Arranged Answers: Family/Friends Faxed Final Orders Answers: Yes Notes: via [employer]/Facility Transfer Answers: Yes Notes: via [employer] Report Printed & Faxed to Receiving Agency Family Notified Answers: Yes Notes: present at discharge Discharge Comments Notes: CM met with patient and family prior to discharge, family will transport patient home and support with follow up. CM explained & delivered IM, patient signed for receipt. Patient has wound vac and will be in contact with the company. Patient is expecting to connect with [facility] tomorrow, CM sent orders via [employer] and spoke with [facility] to update that patient is discharging. CM available to support CM/DC needs that may arise. Date Signed: 10/31/2018 02:51 PM Electronically Signed By:Karina Vo Intervention Information Intervention Type:*IM-Signed Date of Service:10/31/2018 02:48 PM Patient Type:Inpatient Staff Member:Karina Vo Hours: Discipline: Severity: Comment:IM delivered, patient signed for recei pt, IM placed in back of chart.
== END 2018-10-31 15:58 | disposition home health service (06) | DRG 908 ==
LOC: F3N 10:03 → OBSVTOIN 13:49 → F3E 15:19 → UNDODISIN 10-30 08:27
PROVIDERS: ADMIT Surgery; ATTEND Surgery
PROC: 0DBL0ZZ Excision of Transverse Colon, Open Approach (ICD-10-PCS; principal; 2018-10-28 11:45)
PROC: 0WPF0JZ Removal of Synthetic Substitute from Abdominal Wall, Open Approach (ICD-10-PCS; principal; 2018-10-28 11:45)
DX: T85.79XA Infection and inflammatory reaction due to other internal prosthetic devices, implants and grafts, initial encounter (principal); K63.2 Fistula of intestine; I10 Essential (primary) hypertension; G47.33 Obstructive sleep apnea (adult) (pediatric); Z85.46 Personal history of malignant neoplasm of prostate
CPT/HCPCS: J0690; J1100; J1170; J1335; J1885; J2250; J2405; J2704; J3010